=== PATIENT | male | born 1985 | race Caucasian/White ===

== ENCOUNTER 2023-12-20 03:21 | Emergency (ER) | payer OTHER ==
[~2023-12-20] VITALS: Ht 185.4 cm; Wt 81.6 kg
[2023-12-20 03:36] VITALS: BP_SYST 128; PULSE 95; RESP 16; TEMP 97.4; O2SAT 100
[2023-12-20] MEDS ORDERED: CIPR500T5 PO (04:30)
[2023-12-20] MEDS: KETOROLAC TROMETHAMINE 60 MG/2 ML VIAL IM ONE (04:39)
[2023-12-20] MEDS ORDERED: COLC0.6T67 PO (05:08)
[2023-12-20] MEDS ORDERED: NAPR-1172 PO (05:08)
[2023-12-20] MEDS ORDERED: ALLO100T PO (05:08)
[2023-12-20 05:21] VITALS: BP_SYST 134; PULSE 91; RESP 18; TEMP 97.2; O2SAT 100
== END 2023-12-20 05:21 | disposition home or self-care (01) ==
LOC: SED 03:21
DX: M10.072 Idiopathic gout, left ankle and foot (principal); Z79.899 Other long term (current) drug therapy
CPT/HCPCS: 99283; 96372; J1885